=== PATIENT | female | born 1990 | race Caucasian/White ===

== ENCOUNTER 2016-08-11 13:17 | Inpatient (IN) ==
[2016-08-11] MEDS ORDERED: Lidocaine 1% 20 ML MDV ONE (13:23)
[2016-08-11] MEDS ORDERED: Oxytocin 20 units/ LR 1000 mL 20 UNIT/1,000 ML BAG IVC ONE ×2 (13:28→15:34)
[2016-08-11] MEDS ORDERED: Ringers Solution, Lactated 1,000 ML ONE (13:28)
--- NOTE | 2016-08-11 14:31 | OB/GYN Procedure Note ---
Delivery - Delivery Date: 08/11/16 Provider: Daniella Fox Intrapartum events: meconium, precipitous labor- <3hr Delivery induction: none Delivery monitor: external FHT, external uterine Anesthesia: none Estimated Blood Loss: 200 - (s) Infant A Infant Delivery Date: 08/11/16 Infant Delivery Time: 14:03 Presentation: vertex Position: ELMA Route of delivery: Gender: Male Viability: Viable Pounds: 5 Ounces: 8 Weight Gram: 2.5 kg at 1 minute: 9 at 5 mins: 9 Shoulder Dystocia: not encountered Specimens collected: cord blood Placenta: spontaneous, uterine exploration Cord: 3 umbilical vessels - Repair Laceration Description: Periurethral, Superficial (perineal) - Complications Delivery complications: meconium Delivery comments: The patient was complete and pushing without anesthesia with a precipitous spontaneous vaginal delivery in the ELMA position of a viable and vigorous male weighing 5 lbs. 8oz. with Apgars of 9 at 1 minute and 9 at 5 minutes. The was bulb suctioned on the perineum then placed on the maternal abdomen with good respiratory effort in stable condition in the care of the nursery care team. The cord was clamped and cut after pulsation ceased. Cord blood was obtained. Placenta was delivered spontaneous and intact. The uterine cavity was explored and there were no retained products of conception. There were superficial periurethral and perineal lacerations which were hemostatic and not repaired. Estimated blood loss 200 mL's. Complications none. Both mother and infant recovering in stable condition in the LDR. Respiratory therapy and western felt hat blocker, Dr. Sahu, were on site for delivery - Disposition Mom disposition: stable in LDR disposition: stable in LDR
--- NOTE | 2016-08-11 15:14 | OB/GYN History & Physical ---
Date of Encounter: 08/11/16 Time of Encounter: 13:15 Assessment and Plan (1) Limited care, antepartum Current visit: Yes Status: Acute labs sent and pending (2) 35 weeks gestation of Current visit: Yes Status: Acute Admit to labor and delivery for precipitous labor Dr Fox notified GBS status unknown - unable to treat mother due to precipitous delivery Thick, particulate meconium stained fluid - Nursery/Dr Beltre notified History of Present Illness Chief complaint: Labor HPI: Ms. Ho is a 25 year old female at 35 weeks 2 days gestation based upon 2nd trimester ultrasound that arrives to labor and delivery with complaints of rupture fluid and severe contractions. She states she began having contractions this morning at 0600 and they progressively became worse throughout the day. She states her water broke around [address]. She states decreased movement starting at about 7 am. She denies any drug use, and admits to 1/2 ppd of cigarettes. She states her pain is a 10/10. She has had limited care with one visit with Dr Fox during her and one 2nd trimester ultrasound. She has had no labwork completed. Past Med Surg Social Fam HX - Past Medical History Medical history: no medical history Psychiatric history: anxiety, depression - Past Surgical History Surgical History: other - Social History Smoking Status: Current every day smoker Packs per day: 1/2 Smokeless Tobacco Status: No Alcohol use: none Drug use: none - Family History Mother Living Status: Still Living Hx Family Cardiac Disorders: Yes (HYPERTENSION) Hx Family Respiratory Disorders: No Hx Family Cancer: No Hx Family GI Disorders: No Hx Family Genitourinary Disorders: No Hx Family Endocrine Disorder: No Hx Family Musculoskeletal Disorders: No Hx Family Neuromuscular Disorders: No Hx Family Neurologic Disorders: No Hx Family HEENT Disorders: No Hx Family Autoimmune Disorders: No Hx Family Reproductive Disorders: No Hx Family Psychosocial Disorders: No Hx Family Medical Disorders: No Obstetrical History - Pregnancies : 3 Para: 2 Term: 2 : 0 Ab's: 0 Livin Medications and Allergies Vitamins 1 tab PO DAILY 08/11/16 [History] Allergies Amoxicillin [From Augmentin] Allergy (Verified 08/11/16 14:38) Hives clavulanic acid [From Augmentin] Allergy (Verified 08/11/16 14:38) Hives Review of System OB All systems PM: reviewed and no additional remarkable complaints except as stated Exam - Constitutional Constitutional: well developed, well nourished, no acute distress, average body habitus - HEENT HEENT: Normocephaly, Mucus Membranes Moist - Neck Neck exam: full ROM - Lungs Respiratory exam: CTAB - Cardiovascular Cardiovascular exam: RRR, +S1, +S2 - Abdomen Abdomen: Present: bowel sounds normal, gravid - Extremities Extremities exam: normal capillary refill, normal inspection, radial pulses palpable and symetrical - Vulva Vulva: bilateral: normal - Vagina Vagina: Present: normal moisture - Cervix Dilation: 10 Effacement: 100 Station: +2 - Uterus Uterus exam: Present: normal size, normal contour (gravid) - Anus/Rectum Anus/Rectum: Present: normal perianal skin - Comments Comments: FHT's 120's with moderate variability TOCO contractions every 3 minutes, 45-60 seconds in length palpate firm with uterus palpating soft between contractions Thick, particulate meconium stained fluid Results All other labs normal. - VTE Reasons for not Prescribing Prophylaxis: Treatment not Indicated - Low risk for VTE
[2016-08-11 15:24] LABS: Basophils # 0.1 K/mcL (0.0-0.2); Basophils % 0.2 %; Eosinophils # 0.1 K/mcL (0.0-0.6); Eosinophils % 0.2 %; Hematocrit 30.4 % (35.3-44.9); Hemoglobin 9.8 g/dL (11.5-15.4); Immature Granulocytes % 1.2 % (0-4); Lymphocytes # 3.2 K/mcL (0.6-4.6); Lymphocytes % 12.9 %; Mean Corpuscular HGB Conc 32.2 g/dL (31.6-35.5); Mean Corpuscular Hemoglobin 27.9 pg (28.0-33.3); Mean Corpuscular Volume 86.6 fL (83.0-100.0); Mean Platelet Volume 12.1 fL (9.4-12.4); Neutrophils # 20.3 K/mcL (1.6-8.9); Platelet Count 311 K/mcL (140-400); Red Blood Count 3.51 M/mcL (3.82-4.97); Red Cell Distribution Width 14.6 % (11.5-14.5); Segmented Neutrophils % 81.5 %
[2016-08-11] MEDS ORDERED: Ibuprofen 600 MG TABLET PO PRN (15:26)
[2016-08-11] MEDS ORDERED: Oxytocin 20 units/ LR 1000 mL 20 UNIT/1,000 ML BAG IVC SCH (16:52)
[2016-08-11] MEDS ORDERED: Acetaminophen 325 MG TABLET PO PRN (16:52)
[2016-08-11] MEDS ORDERED: Measles/Mumps/Rubella Vacc 0.5 ML VIAL SQ PRN (16:52)
[2016-08-11] MEDS ORDERED: Rho Immune Globulin 1,500 UNIT SYRINGE IM PRN (16:52)
[2016-08-11] MEDS ORDERED: Nicotine 14 MG PATCH.TD24 TD SCH (21:45)
[2016-08-11 21:58] LABS: Hepatitis B Surface Antigen Nonreactive (Nonreactive)
[2016-08-11] MEDS: Ibuprofen 600 MG TABLET PO PRN (22:50)
[2016-08-12 04:13] LABS: Basophils # 0.1 K/mcL (0.0-0.2); Basophils % 0.3 %; Eosinophils # 0.2 K/mcL (0.0-0.6); Hematocrit 27.5 % (35.3-44.9); Hemoglobin 9.1 g/dL (11.5-15.4); Lymphocytes # 6.1 K/mcL (0.6-4.6); Lymphocytes % 29.9 %; Mean Corpuscular HGB Conc 33.1 g/dL (31.6-35.5); Mean Corpuscular Hemoglobin 28.2 pg (28.0-33.3); Mean Corpuscular Volume 85.1 fL (83.0-100.0); Mean Platelet Volume 12.2 fL (9.4-12.4); Monocytes # 1.2 K/mcL (0.0-1.3); Monocytes % 6.1 %; Neutrophils # 12.5 K/mcL (1.6-8.9); Platelet Count 302 K/mcL (140-400); Red Blood Count 3.23 M/mcL (3.82-4.97); Red Cell Distribution Width 14.1 % (11.5-14.5); Segmented Neutrophils % 61.7 %
[2016-08-12] MEDS: Ibuprofen 600 MG TABLET PO PRN (08:02)
[2016-08-12 08:15] VITALS: BP 128/88
[2016-08-12] MEDS ORDERED: Prenatal Vit/FA 1 EACH TABLET PO SCH ×2 (09:00)
[2016-08-12 10:02] LABS: Varicella Zoster IgG Antibody Negative
[2016-08-12 10:03] LABS: Rubella IgG Antibody NEGATIVE (POSITIVE)
[2016-08-12 11:12] LABS: HIV-1&2 Antibody & p24 Ag Nonreactive (Nonreactive)
--- NOTE | 2016-08-12 11:53 | Discharge Summary ---
Date of Encounter: 08/12/16 Time of Encounter: 11:50 - Discharge Diagnosis (1) (normal spontaneous vaginal delivery) Priority: Primary Status: Acute Comments: Pt reports feeling well. Minimal discomfort. Lochia light. Tolerating regular diet. Ambulating without difficulty. Voiding spontaneously. No complaints. (2) Limited care, antepartum Priority: Secondary Status: Acute - Discharge Medications Prescriptions: Ibuprofen [Motrin] 600 mg PO Q6HR PRN #60 tablet PRN Reason: Moderate Pain Docusate [Colace] 100 mg PO BID #60 capsule Ferrous Sulfate 325 mg PO DAILY #30 tablet Home Medications: Vitamins 1 tab PO DAILY 08/11/16 [History] Docusate [Colace] 100 mg PO BID #60 capsule 08/12/16 [Rx] Ferrous Sulfate 325 mg PO DAILY #30 tablet 08/12/16 [Rx] Ibuprofen [Motrin] 600 mg PO Q6HR PRN #60 tablet 08/12/16 [Rx] Allergies/Adverse Reactions: Allergies Amoxicillin [From Augmentin] Allergy (Verified 08/11/16 14:38) Hives clavulanic acid [From Augmentin] Allergy (Verified 08/11/16 14:38) Hives Data Procedures and tests throughout hospitalization: Laboratory Tests 08/11/16 08/11/16 08/11/16 15:00 15:00 15:00 WBC 25.0 H RBC 3.51 L Hgb 9.8 L Hct 30.4 L MCV 86.6 MCH 27.9 L MCHC 32.2 RDW 14.6 H Plt Count 311 MPV 12.1 Immature Gran % 1.2 Seg Neutrophils % 81.5 Lymphocytes % 12.9 Monocytes % 4.0 Eosinophils % 0.2 Basophils % 0.2 Neutrophils # 20.3 H Lymphocytes # 3.2 Monocytes # 1.0 Eosinophils # 0.1 Basophils # 0.1 T.pallidum Ab Interpret NEGATIVE Hep Bs Antigen Nonreactive HIV Ag/Ab Combo Qual Nonreactive Rubella IgG Antibody NEGATIVE L VZV IgG Antibody Negative L Baby's Blood Type Mother's Blood Type Rhogam Indicated 08/11/16 08/12/16 15:00 03:46 WBC 20.2 H RBC 3.23 L Hgb 9.1 L Hct 27.5 L MCV 85.1 MCH 28.2 MCHC 33.1 RDW 14.1 Plt Count 302 MPV 12.2 Immature Gran % 1.0 Seg Neutrophils % 61.7 Lymphocytes % 29.9 Monocytes % 6.1 Eosinophils % 1.0 Basophils % 0.3 Neutrophils # 12.5 H Lymphocytes # 6.1 H Monocytes # 1.2 Eosinophils # 0.2 Basophils # 0.1 T.pallidum Ab Interpret Hep Bs Antigen HIV Ag/Ab Combo Qual Rubella IgG Antibody VZV IgG Antibody Baby's Blood Type A RH NEGATIVE Mother's Blood Type A RH NEGATIVE Rhogam Indicated NO Labs on day of discharge: Labs from last 24 hours 08/12/16 08/11/16 08/11/16 03:46 15:00 15:00 WBC 20.2 H RBC 3.23 L Hgb 9.1 L Hct 27.5 L MCV 85.1 MCH 28.2 MCHC 33.1 RDW 14.1 Plt Count 302 MPV 12.2 Immature Gran % 1.0 Seg Neutrophils % 61.7 Lymphocytes % 29.9 Monocytes % 6.1 Eosinophils % 1.0 Basophils % 0.3 Neutrophils # 12.5 H Lymphocytes # 6.1 H Monocytes # 1.2 Eosinophils # 0.2 Basophils # 0.1 T.pallidum Ab Interpret NEGATIVE Hep Bs Antigen HIV Ag/Ab Combo Qual Rubella IgG Antibody NEGATIVE L VZV IgG Antibody Negative L Baby's Blood Type A RH NEGATIVE Mother's Blood Type A RH NEGATIVE Rhogam Indicated NO 08/11/16 08/11/16 15:00 15:00 WBC 25.0 H RBC 3.51 L Hgb 9.8 L Hct 30.4 L MCV 86.6 MCH 27.9 L MCHC 32.2 RDW 14.6 H Plt Count 311 MPV 12.1 Immature Gran % 1.2 Seg Neutrophils % 81.5 Lymphocytes % 12.9 Monocytes % 4.0 Eosinophils % 0.2 Basophils % 0.2 Neutrophils # 20.3 H Lymphocytes # 3.2 Monocytes # 1.0 Eosinophils # 0.1 Basophils # 0.1 T.pallidum Ab Interpret Hep Bs Antigen Nonreactive HIV Ag/Ab Combo Qual Nonreactive Rubella IgG Antibody VZV IgG Antibody Baby's Blood Type Mother's Blood Type Rhogam Indicated Date of admission: 08/11/16 13:17 Primary care physician: Manjinder Kendrick MD Consults: 08/11/16 16:52 Consult to Insurance Defense Attorney [CONS] Routine Comment: Vaginal delivery, consult needed Consult to Meter Maintenance Person [CONS] Routine Reason for SW Consult: Minimal and Late PNC, precipitous delivery, noncompliant with PNC Discharging clinician: Effie Garcia Anticipated date of discharge: 08/12/16 - Patient Status Disposition: Home, Self-Care Condition: Good Functional capacity at discharge: independent ambulation Overall status at discharge: patient is progressing back to baseline - Discharge Instructions Follow Up With: Manjinder Kendrick MD [Primary Care Provider] - Daniella Fox MD [Partnered Physician] - - Diet and Activity Activity: increase activity as tolerated Hospital Course Reason for admission: active labor Delivery: Episiotomy: none Laceration: none Other procedures: none complications: none Discharge diagnosis: IUP at term delivered Wilson baby: male Hospital course: - Delivery Date: 08/11/16 Provider: Daniella Fox Intrapartum events: meconium, precipitous labor- <3hr Delivery induction: none Delivery monitor: external FHT, external uterine Anesthesia: none Estimated Blood Loss: 200 - (s) Infant A Delivery Date: 08/11/16 Delivery Time: 14:03 Presentation: vertex Position: ELMA Route of delivery: Gender: Male Viability: Viable Pounds: 5 Ounces: 8 Weight Gram: 2.5 kg at 1 minute: 9 at 5 mins: 9 Shoulder Dystocia: not encountered Specimens collected: cord blood Placenta: spontaneous, uterine exploration Cord: 3 umbilical vessels - Repair Laceration Description: Periurethral, Superficial (perineal) - Disposition Mom disposition: home PPD#1 in stable condition feeding: bottle Time Attestation: Total time spent providing and/or coordinating discharge services: Time Spent: Less than 30 minutes Exam - Constitutional Vitals: Temp Pulse Resp BP Pulse Ox 98.5 F 75 16 128/88 98 08/12/16 08:14 08/12/16 08:14 08/12/16 08:14 08/12/16 08:14 08/12/16 08:14 General appearance IM: A&O X 3, pleasant, no acute distress - Respiratory Respiratory exam: Present: CTAB - Cardiovascular Cardiovascular exam IM: Present: RRR, +S1, +S2 - GI/Abdominal GI/Abdominal exam IM: soft - Rectal Rectal exam: deferred - External exam: normal external exam Uterine Tone: Firm Uterus Position: 1 Finger Below Umbilicus - Extremities Exam Extremities exam IM: Present: normal inspection - Neurological Exam Neurological exam: normal gait, oriented X3 - Psychiatric Additional comments: reports good mood
== END 2016-08-12 16:05 | disposition home or self-care (01) | DRG 560 ==
LOC: 1NENULAB → OBSVTOIN 13:17 → 1NENUOBS 16:51
PROVIDERS: ADMIT Obstetrics & Gynecology; ATTEND Obstetrics & Gynecology